=== PATIENT | female | born 1970 | race Caucasian/White ===

== ENCOUNTER 2016-12-24 20:54 | Emergency (ER) | payer OTHER ==
[~2016-12-24] VITALS: Ht 157.5 cm; Wt 68.0 kg
[2016-12-24 20:58] VITALS: BP 120/80
--- NOTE | 2016-12-24 23:15 | NUR ---
BIB WHEELCHAIR TO ER BED 6
--- NOTE | 2016-12-24 23:15 | NUR ---
46Y F BIB FAMILY C/O DIZZINESS X 3 HOURS . PT DENIES N/V/D; SKIN IS PINK/WARM/DRY; AAOX4 WITH EVEN AND STEADY GAIT; LUNGS CLEAR BL; HR EVEN AND REGULAR; PT DENIES ANY FEVER, CP, OR COUGH AT THIS TIME; PATIENT STATES PAIN OF 0/10 AT THIS TIME; VSS; PATIENT POSITIONED FOR COMFORT; HOB ELEVATED; BEDRAILS UP X2; BED DOWN. ER MD MADE AWARE OF PT STATUS.
--- NOTE | 2016-12-25 00:48 | NUR ---
Patient being evaluated by physician DR ALVES at bedside.
[2016-12-25 00:57] VITALS: BP 112/73
--- NOTE | 2016-12-25 00:57 | NUR ---
Patient discharged with v/s stable. Written and verbal after care instructions given and explained. Patient verbalized understanding. Ambulatory with steady gait. All questions addressed prior to discharge. Advised to follow up with PMD.
== END 2016-12-25 00:57 | disposition home or self-care (01) ==
LOC: MED 20:59
DX: R42 Dizziness and giddiness (principal); R20.0 Anesthesia of skin; R53.1 Weakness; E03.9 Hypothyroidism, unspecified